=== PATIENT | male | born 2000 | race Caucasian/White ===

== ENCOUNTER 2021-06-27 08:43 | Emergency (ER) | payer BC, SELFPAY ==
[2021-06-27 08:58] VITALS: BP 153/83; PULSE 103; RESP 16; TEMP 37.3; O2SAT 100
--- NOTE | 2021-06-27 09:08 | ED.SKABFB ---
HPI - Skin/Abscess/Foreign Bdy General Stated complaint: RASH Source: patient Mode of arrival: ambulatory Limitations: no limitations History of Present Illness HPI narrative: 20-year-old male presenting for complaint of red rash to hands, axilla, and thighs for approximately 1 week. He states about 2 weeks ago the rash was on his back and then spread to his hands. The the back is dissipated. 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 He has been taking been-hom-mjnryfe antihistamines with minimal relief. Denies lip, tongue swelling and he denies shortness of breath or wheezing. Denies any changes to soap, detergent, etc. Related Data Home Medications Medication Instructions Recorded Confirmed [id number]-[id number]-[id number] 1 applic TOPICAL DIRECTED 06/27/21 06/27/21 [Ivarest] Allergies Allergy/AdvReac Type Severity Reaction Status Date / Time No Known Allergies Allergy Verified 06/27/21 09:20 Review of Systems Review of Systems: CONSTITUTIONAL: Denies body aches, fever, chills, or sweats. EYES: Denies visual changes, redness, or discharge. ENT: Denies rhinorrhea, congestion, sore throat, or otalgia. CARDIOVASCULAR: Denies chest pain, palpitations, or edema. RESPIRATORY: Denies cough or dyspnea. GASTROINTESTINAL: Denies abdominal pain, nausea, vomiting, or diarrhea. GENITOURINARY: Denies dysuria or hematuria. SKIN: endorses rash, itching MUSCULOSKELETAL: Denies back pain, joint pain, or myalgia. NEUROLOGIC: Denies headache, numbness, tingling, or weakness. PSYCH: Denies depression or anxiety. PMFSH Comments At time of signature, I have reviewed and agree with nursing past medical, surgical, social and family history unless otherwise noted. Please see nursing chart for further information. There is no relevant family history pertinent to the presenting complaint Exam Narrative: GENERAL: Well-appearing, well-nourished, and in no acute distress. HEAD: Normocephalic, atraumatic. EYES: PERRLA, conjunctivae clear, and EOMI. ENT: Mucous membranes moist. Oropharynx without edema, erythema or lesions. NECK: Supple. No lymphadenopathy CHEST: Clear to auscultation. No respiratory distress. HEART: Regular rate and rhythm. SKIN: Warm, dry. Patches of erythema and edema to bilat hands, axilla. no drainage from lesions NEURO: Alert and oriented x3. PSYCH: Normal mood and affect Course Course Emergency Course: Does not appear at this time to be erythema multiforme, bullous, SJS, TEN; no evidence at this time to suggest RMSF, endocarditis or Lyme disease; patient looks well, nontoxic and is tolerating oral intake; no neurologic signs or symptoms; no headache, photophobia or neck pain; afebrile; appropriate for initial outpatient treatment; discussed the importance of follow-up, patient agrees; question, viral exanthema, contact dermatitis, allergic dermatitis, eczema, urticaria. No soft palate or uvula edema, no tongue, lip edema or other mucosal involvement, no respiratory compromise, no stridor, no wheezing, no wheezing, no history of syncope, no hypotension, no nausea, vomiting, or diarrhea. Instructed patient to go to nearest ER immediately for any worsening symptoms including but not limited to: fever, spreading rash, pain, sore throat, headache, dizziness, chest pain, trouble breathing, or any symptoms concerning to the patient. Declines Rx epi-pen. Level of Care: Express Care Visit Vital Signs Vital signs: Vital Signs Temperature 99.1 F 06/27/21 08:58 Pulse Rate 103 H 06/27/21 08:58 Respiratory Rate 16 06/27/21 08:58 Blood Pressure 153/83 H 06/27/21 08:58 Pulse Oximetry 100 06/27/21 08:58 Temperature 99.1 F 06/27/21 08:58 Pulse Rate 103 H 06/27/21 08:58 Respiratory Rate 16 06/27/21 08:58 Blood Pressure 153/83 H 06/27/21 08:58 Pulse Oximetry 100 06/27/21 08:58 MDM - Skin/Abscess/Foreign Bdy Differential Diagnosis Differential di
[2021-06-27] MEDS: methylPREDNISolone ACETATE 80 MG/ML VIAL IM (09:32)
[2021-06-27 10:02] VITALS: BP 145/78
== END 2021-06-27 10:02 | disposition home or self-care (01) ==
PROVIDERS: Emergency Provider Nurse Practitioner Family
DX: L30.9 Dermatitis, unspecified (principal)
CPT/HCPCS: 96372; 99213; G0463; J1040

== ENCOUNTER 2021-07-01 10:32 | Emergency (ER) | payer BC, SELFPAY ==
--- NOTE | ~2021-07-01 | XR_ITS ---
EXAMINATION: XR chest 2V DATE: 07/01/2021 10:59 INDICATION: Cough and shortness of breath. TECHNIQUE: Frontal and lateral views of the chest were obtained. COMPARISON: None. FINDINGS: There are patchy airspace opacities in all lung zones bilaterally. No pleural effusion or p neumothorax. The heart size is normal. IMPRESSION: 1. Diffuse lung disease, consistent with pneumonia such as COVID-19 pneumonia. Reviewed, dictated and finalized at location [facility] [employer]
--- NOTE | 2021-07-01 10:41 | ED.URI ---
HPI - URI/Sore Throat General Chief Complaint: Upper Respiratory Infection Stated Complaint: Rash,Cough Time Seen by Provider: 07/01/21 11:25 Source: patient and RN notes reviewed Mode of arrival: ambulatory Limitations: no limitations History of Present Illness HPI Narrative: 20-year-old male presents with concern for cough, loss of taste or smell, fatigue, body aches. He reports he is currently on a steroid pack for a rash that he started on June 27. He reports his loss of taste and smell, cough, body aches started on June 28. He reports shortness of breath with exertion MD elicited complaint: cough and sore throat Related Data Home Medications Medication Instructions Recorded Confirmed gamfoxkuvt-[id number]-xiycevbz 1 applic TOPICAL DIRECTED 06/27/21 06/27/21 [Ivarest] Allergies Allergy/AdvReac Type Severity Reaction Status Date / Time No Known Allergies Allergy Verified 06/27/21 09:20 Review of Systems Review of Systems: CONSTITUTIONAL: Reports malaise. Denies chills, sweats, or fever. EYES: Denies visual changes, redness, or discharge. ENT: Reports rhinorrhea, congestion. Denies sinus pain, otalgia and sore throat. CARDIOVASCULAR: Denies chest pain, palpitations, or edema. RESPIRATORY: Reports cough. Reports exertional dyspnea. GASTROINTESTINAL: Denies abdominal pain, nausea, vomiting, diarrhea SKIN: Denies rash or itching. MUSCULOSKELETAL: Reports myalgia. NEUROLOGIC: Denies headache. All systems reviewed & are unremarkable except as noted in HPI and below PMFSH Comments At time of signature, agree with nursing past medical, surgical, social and family history. There is no relevant family history pertinent to the presenting complaint Exam Narrative: GENERAL: Well-appearing, well-nourished, and in no acute distress. HEAD: Normocephalic EYES: PERRLA, conjunctivae clear ENT: Nares clear. Mucous membranes moist. TM pearly chaney with dull light reflex bilaterally; no tragal tenderness. NECK: Supple. No lymphadenopathy CHEST: Clear to auscultation, breath sounds equal. No wheezing, rhonchi, rales, or stridor. No respiratory distress, speaks in full sentences. HEART: Regular rate and rhythm. No murmur heard. SKIN: Warm, dry, no rash. NEURO: Alert and oriented x3. PSYCH: Normal mood and affect Course Course Emergency Course: Patient is aware of diagnosis, understands and agrees to treatment plan. Anticipatory guidance given. Patient agrees to follow-up as directed and is aware of reasons to seek care at the emergency department. Portions of this record may have been created with voice recognition software Level of Care: Express Care Visit Vital Signs Vital signs: Reviewed. MDM - URI/Sore Throat MDM Narrative Medical decision making narrative: Differential diagnosis considered: Renteria virus, strep pharyngitis, allergic rhinitis, upper respiratory tract infection, sinusitis, rhinosinusitis, nasopharyngitis. viral pharyngitis, otitis media, otitis externa, pneumonia, bronchitis, viral cough syndrome, viral syndrome, and influenza. Exam findings show no acute concerns or changes; patient is non-toxic appearing and is in no distress. Patient is appropriate for outpatient treatment and follow-up. Lab Data Attestation: I reviewed the patient's lab results. Imaging Data My impression: Images reviewed, interpreted by radiologist, agree, see report. Radiologist's impression: EXAMINATION: XR chest 2V DATE: 07/01/2021 10:59 INDICATION: Cough and shortness of breath. TECHNIQUE: Frontal and lateral views of the chest were obtained. COMPARISON: None. FINDINGS: There are patchy airspace opacities in all lung zones bilaterally. No pleural effusion or pneumothorax. The heart size is normal. IMPRESSION: 1. Diffuse lung disease, consistent with pneumonia such as COVID-19 pneumonia. Critical Care Time Critical Care Time Critical Care Time: No Discharge Plan Discharge Clinical Impression: Pneum
[2021-07-01 10:49] VITALS: BP 122/93; PULSE 115; RESP 16; TEMP 37.3; O2SAT 99
[2021-07-02 11:34] LABS: SARS-CoV-2 RNA PCR Positive
== END 2021-07-01 11:47 | disposition home or self-care (01) ==
PROVIDERS: Emergency Provider Nurse Practitioner
DX: U07.1 COVID-19 (principal); J12.82 Pneumonia due to coronavirus disease 2019
CPT/HCPCS: 71046; 87426; 99213; C9803; G0463; U0003; U0005

== ENCOUNTER 2021-11-10 14:23 | Emergency (ER) | payer BC, SELFPAY ==
[2021-11-10 14:31] VITALS: BP 142/87; PULSE 73; RESP 18; TEMP 36.4; O2SAT 100
--- NOTE | 2021-11-10 14:53 | ED.SKABFB ---
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 He states he works at the [employer] and rinsed thoroughly after work yesterday because he is aware he has severe allergy to poison tobin. States he noticed small rash on arms today, but that it has spread quickly, and wanted to be evaluated. He has not taken anything for symptoms. He denies lip, tongue, or throat swelling, itching, or trouble breathing. MD complaint: rash Related Data Allergies Allergy/AdvReac Type Severity Reaction Status Date / Time No Known Allergies Allergy Verified 11/10/21 14:35 Review of Systems Review of Systems: CONSTITUTIONAL: Denies body aches, fever, chills, or sweats. EYES: Denies visual changes, redness, or discharge. ENT: Denies rhinorrhea, congestion, sore throat, or otalgia. CARDIOVASCULAR: Denies chest pain, palpitations, or edema. RESPIRATORY: Denies cough or dyspnea. GASTROINTESTINAL: Denies abdominal pain, nausea, vomiting, or diarrhea. GENITOURINARY: Denies dysuria or hematuria. SKIN: reports rash, itching MUSCULOSKELETAL: Denies back pain, joint pain, or myalgia. NEUROLOGIC: Denies headache, numbness, tingling, or weakness. PSYCH: Denies depression or anxiety. PMFSH Comments At time of signature, I have reviewed and agree with nursing past medical, surgical, social and family history unless otherwise noted. Please see nursing chart for further information. There is no relevant family history pertinent to the presenting complaint Exam Narrative: GENERAL: Well-appearing, no acute distress. HEAD: Normocephalic, atraumatic. EYES: conjunctivae clear, and EOMI. ENT: Mucous membranes moist. Oropharynx without edema, erythema or lesions. NECK: Supple. No lymphadenopathy CHEST: Clear to auscultation. No respiratory distress. HEART: Regular rate and rhythm. SKIN: Warm, dry. Patches of urticaria to bilateral forearms, trunk, and small patch by eyes, no drainage, nontender NEURO: Alert and oriented x3. PSYCH: Normal mood and affect Course Course Emergency Course: Patient is aware of diagnosis, understands and agrees to treatment plan. Anticipatory guidance given. Patient agrees to follow-up as directed and is aware of reasons to seek care at the emergency department. Portions of this record may have been created with voice recognition software Level of Care: Express Care Visit Vital Signs Vital signs: Vital Signs Temperature 97.6 F 11/10/21 14:31 Pulse Rate 73 11/10/21 14:31 Respiratory Rate 18 11/10/21 14:31 Blood Pressure 142/87 H 11/10/21 14:31 Pulse Oximetry 100 11/10/21 14:31 Oxygen Delivery Room Air 11/10/21 14:31 Temperature 97.6 F 11/10/21 14:31 Pulse Rate 73 11/10/21 14:31 Respiratory Rate 18 11/10/21 14:31 Blood Pressure 142/87 H 11/10/21 14:31 Pulse Oximetry 100 11/10/21 14:31 Oxygen Delivery Room Air 11/10/21 14:31 Reviewed MDM - Skin/Abscess/Foreign Bdy MDM Narrative Medical decision making narrative: Does not appear at this time to be erythema multiforme, bullous, SJS, TEN; Patient looks well, nontoxic, afebrile; No soft palate or uvula edema, no tongue, lip edema or other mucosal involvement, no respiratory compromise, tolerated steroid and pepcid. appropriate for initial outpatient treatment; discussed the importance of follow-up, patient agrees Instructed patient to go to nearest ER immediately for any worsening symptoms including but not limited to: fever, spreading rash, pain, sore throat, headache, dizziness, chest pain, trouble breathing, or any symptoms concerning to the patient. Differential Diagnosis Differential diagnosis: Likely absc
[2021-11-10] MEDS: FAMOTIDINE 20 MG TABLET 40 MG PO (15:11)
[2021-11-10] MEDS: methylPREDNISolone SOD SUCC 125 MG VIAL IM (15:11)
[2021-11-10] MEDS: diphenhydrAMINE HCl CAP 25 MG CAPSULE PO (15:11)
== END 2021-11-10 15:39 | disposition home or self-care (01) ==
PROVIDERS: Emergency Provider Nurse Practitioner Family
DX: L50.9 Urticaria, unspecified (principal); Z86.16 Personal history of COVID-19
CPT/HCPCS: 96372; 99213; A9270; G0463; J2930

== ENCOUNTER 2022-01-23 08:13 | Emergency (ER) | payer BC, SELFPAY ==
[2022-01-23 08:20] VITALS: BP 155/98; PULSE 91; RESP 18; TEMP 36.7; O2SAT 100
--- NOTE | 2022-01-23 08:31 | ED.SKABFB ---
HPI - Skin/Abscess/Foreign Bdy General Chief complaint: Skin/Abscess/Foreign Body Stated complaint: Rash Time Seen by Provider: 01/23/22 08:31 Source: patient and RN notes reviewed Mode of arrival: ambulatory Limitations: no limitations History of Present Illness HPI narrative: 21-year-old male presents to the [facility] with complaints of a vesicular rash to his bilateral arms. 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 Patient has history of poison tobin. Has been taking Benadryl with some relief. Also has a flat red rash on his abdomen. Describes it as being very itchy. No trouble swallowing, no lip or tongue swelling. No trouble breathing No new creams ointments lotions or detergents. Related Data Allergies Allergy/AdvReac Type Severity Reaction Status Date / Time No Known Allergies Allergy Verified 01/23/22 08:20 Review of Systems Review of Systems: All systems reviewed & are unremarkable except as noted in HPI and below Constitutional: Constitutional: Reports no additional constitutional complaints, Denies chills and Denies fever(s) Eyes: Eyes: Reports no additional eye complaints ENT: Reports system reviewed and no additional complaints, except as documented Cardiovascular: Cardiovascular: Reports no additional cardiovascular complaints Respiratory: Respiratory: Reports no additional respiratory complaints Gastrointestinal: Gastrointestinal: Reports no additional gastrointestinal complaints Musculoskeletal: Musculoskeletal: Reports no additional musculoskeletal complaints Integumentary/Breasts: Skin/Breast: Reports as per HPI, Reports pruritus and Reports rash Neurologic: Reports system reviewed and no additional complaints, except as documented Psychiatric: Psychiatric: Reports no additional psychiatric complaints Allergic/Immunologic: Allergic/Immunologic: Reports no additional allergic/immunologic complaints [facility] Past Medical History Medical History (Updated 01/23/22 @ 18:27 by Dayan Woo APRN) Patient denies medical problems Surgical History Surgical History No pertinent past surgical history Social History Social History (Updated 01/23/22 @ 18:27 by Dayan Woo APRN) Gender identity (if verbalized by the patient): Male Comments At the time of my signature, I reviewed and agree with the nursing past medical, surgical, social, and family history. There is no relevant family history pertinent to the patient complaint. Exam Const: General: healthy appearing, no acute distress and alert Nutritional Appearance: well nourished and obese Orientation/consciousness: patient oriented x3 Limitations: no limitations HENMT: Head: normal to inspection Ears: external ears normal General nose exam: Normal external nose present Mouth: Yes Normal oral and palatal mucosa present, Yes lip normal and Yes moist mucous membranes Eyes: General: appearance normal, both eyes and all related structures Pupils: Equal, round and reactive pupils present Neck: Neck: normal visual inspection, no lymphadenopathy and no meningeal signs Chest: Chest palpation & inspection: normal inspection of the chest Resp: Effort & Inspection: normal respiratory effort and no use of accessory muscles Auscultation: clear to auscultation bilaterally, no crackles, no rales, no rhonchi and no wheezes Cardio: Rate: regular rate Rhythm: regular rhythm GI: GI Palp: Yes Soft to palpation and No Tenderness to palpation present (GI) Back/Spine/Pelvis: Cervical Spine: normal cervical lordosis Thoracic/Lumbar Spine: thoracic and lumbar spine normal to inspection Skin: General skin exam: normal color Wounds: no wounds Other: Bilateral vesicular red patches to his arms. Red Uticaria areas to his abdomen and chest. Neuro: General: patient oriented x3, moves all extremities, no meningeal signs and no focal motor deficits Cranial ner
== END 2022-01-23 08:42 | disposition home or self-care (01) ==
PROVIDERS: Emergency Provider Nurse Practitioner
DX: L25.5 Unspecified contact dermatitis due to plants, except food (principal); Z86.16 Personal history of COVID-19
CPT/HCPCS: 99213; G0463

== ENCOUNTER 2023-11-17 08:27 | Emergency (ER) | payer OTHER, SELFPAY ==
[2023-11-17 08:55] VITALS: BP 140/103; PULSE 98; RESP 16; TEMP 36.9; O2SAT 99
--- NOTE | 2023-11-17 09:18 | ED.GENADULT ---
HPI - General Adult General Chief complaint: Skin/Abscess/Foreign Body Stated complaint: throat issue,rash on right leg Source: patient Mode of arrival: ambulatory Limitations: no limitations History of Present Illness HPI narrative: Patient presents for evaluation of sore throat for the last 4 days. His tcbcff-wv-ffo and cbapcem-dq-sse both have strep. He has hot flashes, chills and body aches. He denies cough, shortness of breath, diarrhea. He is taking ibuprofen for symptoms. He also reports a painful rash to the right groin for the last 5 days. No new lotions, soaps, detergents or topical products. 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 Related Data Allergies Allergy/AdvReac Type Severity Reaction Status Date / Time No Known Allergies Allergy Mild Verified 11/17/23 08:50 Review of Systems Review of Systems: CONSTITUTIONAL: Reports hot flashes and chills. EYES: Denies visual changes, redness, or discharge. ENT: Reports sore throat. Denies rhinorrhea, congestion, or otalgia. CARDIOVASCULAR: Denies chest pain, palpitations, or edema. RESPIRATORY: Denies cough or dyspnea. GASTROINTESTINAL: Denies abdominal pain, nausea, vomiting, or diarrhea. GENITOURINARY: Denies dysuria or hematuria. SKIN: Reports painful rash to the right groin MUSCULOSKELETAL: Denies back pain, joint pain, or myalgia. NEUROLOGIC: Denies headache, numbness, dizziness, or weakness. PSYCHIATRIC: Denies anxiety or depression. [facility] Past Medical History Medical History Patient denies medical problems Surgical History Surgical History No pertinent past surgical history Family History Family History Mother Unknown family medical history Social History Social History Substance use: never Living arrangements: with family Gender identity (if verbalized by the patient): Male Sexual Orientation (if Verbalized by the Patient): Straight or Heterosexual Spiritual care concerns: No Exam Narrative: GENERAL: Well-appearing, well-nourished, and in no acute distress. HEAD: Normocephalic, atraumatic. EYES: PERRLA and EOMI. ENT: Nares clear, no rhinorrhea or epistaxis. Mucous membranes moist. There is posterior pharyngeal erythema with white exudate. Uvula is midline.Bilateral TMs pearly chaney nonbulging NECK: Supple. No adenopathy or masses. No carotid bruits or JVD CHEST: Clear to auscultation. No respiratory distress. No wheezes rales or rhonchi HEART: Regular rate and rhythm. No murmur heard. Normal peripheral pulses. ABDOMEN: Soft, nontender, nondistended, normal active bowel sounds. EXTREMITIES: Normal range of motion. No edema. SKIN: Right inguinal region is erythematous with some dried sanguinous drainage NEURO: No focal deficits. Alert and oriented x3. PSYCH: Normal mood and affect. Course Course Emergency Course: This is a 23-year-old male who presented for evaluation of sore throat. Rapid strep positive. Will treat with amoxicillin. Terms of the rash, it is consistent with tinea cruris. Will discharge with ketoconazole. Increase hydration. Nwyg-ldq-mknrydh medications for symptom management. Follow up with primary provider. Go to the ER for worsening symptoms. Patient in agreement with plan of care. Level of Care: Express Care Visit Vital Signs Vital signs: Vital Signs Temperature 36.9 C 11/17/23 08:55 Pulse Rate 98 11/17/23 08:55 Respiratory Rate 16 11/17/23 08:55 Blood Pressure 140/103 H 11/17/23 08:55 Pulse Oximetry 99 11/17/23 08:55 Oxygen Delivery Room Air 11/17/23 08:55 Temperature 36.9 C 11/17/23 08:55 Pulse Rate 98 11/17/23 08:55 Respiratory Rate 16 11/17/23 08:55 Blood Pressure 140/103
== END 2023-11-17 09:27 | disposition home or self-care (01) ==
PROVIDERS: Emergency Provider Nurse Practitioner
DX: B35.6 Tinea cruris (principal); J02.0 Streptococcal pharyngitis
CPT/HCPCS: 87880; 99213; G0463